=== PATIENT | female | born 1975 | race American Indian/Alaskan Native ===

== ENCOUNTER 2016-12-03 15:21 | Emergency (ER) | payer BC | END 2016-12-03 15:22 | disposition left against medical advice (07) | LOC: ED 15:21 | DX: R50.9 Fever, unspecified (principal); R05 Cough; Z53.21 Procedure and treatment not carried out due to patient leaving prior to being seen by health care provider ==

== ENCOUNTER 2017-01-04 13:17 | Emergency (ER) | payer BC ==
[2017-01-04] MEDS ORDERED: NORCO 7.5/325 PO ONE (14:26)
--- NOTE | 2017-01-04 14:39 | XRay Report ---
Right forearm 2 views: History: Rule out fracture injury and pain. Findings: No articular abnormality. No fracture dislocation or periosteal reaction. Impression: Essentially negative right foot.
--- NOTE | 2017-01-04 15:25 | Emergency Department Report ---
Entered by DENISE HILL, acting as scribe for MONICA HUGGINS PA. ED Lower Extremity HPI - General Chief Complaint: Extremity Injury, Lower Stated Complaint: RT ANKLE INJURY Source: patient Mode of arrival: Wheelchair Limitations: No Limitations - History of Present Illness Initial Comments: 41 year old female with a PMHx of HTN, hypothyroidism, and asthma presents to the ED c/o right posterior ankle pain that began this morning. Patient states that she was walking on gravel and stepped in a hole at work, and subsequently twisted her right ankle. Rates pain a 10/10 in severity. Associated symptoms include right dorsal forefoot pain and swelling, but she denies numbness, tingling, SOB, fever, and chills. Notes patient was brought to the ED by her sister. Reports compliancy with HTN medication and PCP appointments. LMP 2016. Allergic to azithromycin. Complaint: ankle injury (right) -: This morning Injury: Ankle: Right (posterior ankle and dorsal forefoot) Type of Injury: inversion (stepped in a hole at work and twisted right ankle) Place: work Severity: moderate Severity scale (0 -10): 10 Improves With: immobilization Worsens With: weight bearing, movement, palpation Context: walking (stepped in a hole at work) Associated Symptoms: swelling (right ankle), able to partially bear weight, ambulatory. denies: snap/pop sensation, numbness, tingling - Related Data Home Medications Medication Instructions Recorded Confirmed Last Taken Levothyroxine [Synthroid] 200 mcg PO QAM 08/21/14 08/07/15 08/20/14 Previous Rx's Medication Instructions Recorded Last Taken Type HYDROcodone/APAP 7.5-325 [[place] 1 each PO Q6HR PRN #12 tablet 08/07/15 Unknown Rx 7.5/325] Amoxicillin [Trimox CAP] 500 mg PO Q8H #30 capsule 08/12/15 Unknown Rx Fluticasone [Flonase] 2 spray NS QDAY #1 bottle 08/12/15 Unknown Rx Loratadine [Claritin] 10 mg PO DAILY #30 tablet 08/12/15 Unknown Rx Prednisone [predniSONE 10 mg 10 mg PO .TAPER #1 tab.ds.pk 08/12/15 Unknown Rx (6-Day Pack, 21 Tabs)] Promethazine /Codeine 5 ml PO Q6H PRN #120 ml 08/12/15 Unknown Rx [Phenergan/Codeine 6.25-10 mg/5 ml] Tobramycin 0.3% [Tobrex] 1 drop OP Q4HR #1 bottle 08/21/15 Unknown Rx Acetaminophen/Codeine [Tylenol 1 tab PO Q6H PRN #20 tab 01/04/17 Unknown Rx /Codeine # 3 tab] Ibuprofen [Motrin 800 MG tab] 800 mg PO Q8HR PRN #30 tablet 01/04/17 Unknown Rx Allergies Allergy/AdvReac Type Severity Reaction Status Date / Time azithromycin [From Zithromax] Allergy Swelling Verified 08/21/14 05:01 ED Review of Systems Comment: All other systems reviewed and negative Constitutional: denies: chills, fever, other (tingling) Respiratory: denies: orthopnea, shortness of breath, SOB with exertion, SOB at rest, stridor Cardiovascular: denies: chest pain, palpitations, dyspnea on exertion, orthopnea Gastrointestinal: denies: nausea, vomiting Musculoskeletal: other (right ankle pain) Skin: other (right ankle swelling) Neurological: denies: numbness ED Past Medical Hx - Past Medical History Hx Hypertension: Yes Hx Asthma: Yes Additional medical history: HYPOTHYROID - Surgical History Additional Surgical History: CS, THYROIDECTOMY - Social History Smoking Status: Never Smoker Substance Use Type: None - Medications Home Medications: Home Medications Medication Instructions Recorded Confirmed Last Taken Type Levothyroxine [Synthroid] 200 mcg PO QAM 08/21/14 08/07/15 08/20/14 History HYDROcodone/APAP 7.5-325 [[place] 1 each PO Q6HR PRN #12 tablet 08/07/15 Unknown Rx 7.5/325] Amoxicillin [Trimox CAP] 500 mg PO Q8H #30 capsule 08/12/15 Unknown Rx Fluticasone [Flonase] 2 spray NS QDAY #1 bottle 08/12/15 Unknown Rx Loratadine [Claritin] 10 mg PO DAILY #30 tablet 08/12/15 Unknown Rx Prednisone [predniSONE 10 mg 10 mg PO .TAPER #1 tab.ds.pk 08/12/15 Unknown Rx (6-Day Pack, 21 Tabs)] Promethazine /Codeine 5 ml PO Q6H PRN #120 ml 08/12/15 Unknown Rx [Phenergan/Codeine 6.25-10 mg/5 ml] Tobramycin 0.3% [Tobrex] 1 drop OP Q4HR #1 bottle 08/21/15 Unknown Rx Acetaminophen/Codeine [Tylenol 1 tab PO Q6H PRN #20 tab 01/04/17 Unknown Rx /Codeine # 3 tab] Ibuprofen [Motrin 800 MG tab] 800 mg PO Q8HR PRN #30 tablet 01/04/17 Unknown Rx ED Physical Exam - General Limitations: No Limitations General appearance: alert, in no apparent distress - Head Head exam: Present: atraumatic, normocephalic - Eye Eye exam: Present: normal appearance, EOMI Pupils: Present: normal accommodation - ENT ENT exam: Present: normal exam, mucous membranes moist - Neck Neck exam: Present: normal inspection, full ROM - Respiratory Respiratory exam: Present: normal lung sounds bilaterally. Absent: respiratory distress, wheezes, rales, rhonchi, stridor - Cardiovascular Cardiovascular Exam: Present: regular rate, normal rhythm. Absent: systolic murmur, diastolic murmur, rubs, gallop - Extremities Exam Extremities exam: Present: normal inspection, full ROM (limited dorsiflexion and plantar flexion), tenderness (right posterior ankle and dorsal forefoot tenderness), joint swelling (minimal right dorsal forefoot ). Absent: normal capillary refill, pedal edema - Expanded Lower Extremity Exam Right Hip exam: Present: normal inspection, full ROM Upper Leg exam: Present: normal inspection, full ROM Knee exam: Present: normal inspection, full ROM Lower Leg exam: Present: normal inspection, full ROM Ankle exam: Present: normal inspection, tenderness (right posterior ankle tenderness). Absent: full ROM (limited dorsiflexion and plantar flexion due to posterior ankle pain), swelling, abrasion, laceration, ecchymosis, deformity, dislocation, erythema Foot/Toe exam: Present: normal inspection, tenderness (right dorsal forefoot tenderness), swelling (minimal right dorsal forefoot edema). Absent: full ROM ( limited due to dorsal forefoot pain), abrasion, laceration, ecchymosis, deformity, dislocation, erythema Neuro vascular tendon exam: Present: no vascular compromise. Absent: pulse deficit, abnormal cap refill, motor deficit, sensory deficit, tendon deficit, pallor Gait: Positive: unable to bear weight (patient in ED in wheelchair) - Back Exam Back exam: Present: normal inspection, full ROM - Neurological Exam Neurological exam: Present: alert, oriented X3 - Psychiatric Psychiatric exam: Present: normal affect, normal mood - Skin Skin exam: Present: warm, dry, intact, other (minimal right dorsal forefoot swelling). Absent: rash ED Course Vital Signs 01/04/17 13:29 Temperature 98.4 F Pulse Rate 101 H Respiratory 20 Rate Blood Pressure 129/89 O2 Sat by Pulse 100 Oximetry ED Lower Extremity MDM - Medical Decision Making Patient was evaluated in fast track area of ED by this provider. Patient presented with right ankle pain secondary to stepping in a hole at work this morning. Patient is in no acute distress at this time. In the ED, the patient is given pain medication. The X-ray was reviewed by Dr. Daniel Garcia and he found no fracture, dislocation, or periosteal reaction in her right ankle. She will be discharged home with prescription for pain medication. Patient is instructed to follow up with a family resource management specialist or an orthopedic doctor if symptoms persist. She is encouraged to return to the emergency room for any worsening symptoms. ED Disposition Clinical Impression: Right ankle sprain Qualifiers: Encounter type: initial encounter Involved ligament of ankle: unspecified ligament Qualified Code(s): S93.401A - Sprain of unspecified ligament of right ankle, initial encounter Disposition: DISCHARGED TO HOME OR SELFCARE Is pt being admited?: No Does the pt Need Aspirin: No Condition: Stable Instructions: RICE Therapy (ED), Ankle Stirrup Splint (ED), Ankle Sprain (ED), Ankle Exercises (GEN) Additional Instructions: Please take the Motrin and Tylenol for pain control. Where it Bib bandage and splint for ankle as prescribed. Follow up with the provider if does not resolve or improve. Prescriptions: Acetaminophen/Codeine [Tylenol /Codeine # 3 tab] 1 tab PO Q6H PRN #20 tab PRN Reason: Pain Ibuprofen [Motrin 800 MG tab] 800 mg PO Q8HR PRN #30 tablet PRN Reason: Pain Referrals: PRIMARY CAREMD [Primary Care Provider] - 3-5 Days LEANNA AMEZQUITA MD [Staff Physician] - 3-5 Days Forms: Work/School Release Form(ED) This documentation as recorded by the scribe,DENISE HILL,accurately reflects the service I personally performed and the decisions made by me, MONICA HUGGINS, PA.
[2017-01-04 15:26] VITALS: BP 128/68
== END 2017-01-04 15:25 | disposition home or self-care (01) ==
LOC: ED 13:17
DX: S93.401A Sprain of unspecified ligament of right ankle, initial encounter (principal); I10 Essential (primary) hypertension; J45.909 Unspecified asthma, uncomplicated; E03.9 Hypothyroidism, unspecified; X50.9XXA Other and unspecified overexertion or strenuous movements or postures, initial encounter; Y93.89 Activity, other specified; Y92.89 Other specified places as the place of occurrence of the external cause; Y99.8 Other external cause status
CPT/HCPCS: 81025; 99284

== ENCOUNTER 2018-12-07 21:28 | Emergency (ER) | payer BC ==
[2018-12-07] MEDS ORDERED: NORCO 7.5/325 PO ONE (21:41)
[2018-12-07 21:43] VITALS: BP 166/86
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
[2018-12-07] MEDS ORDERED: THERMAZENE 50 GRAM TP ONE ×3 (21:48→22:10)
[2018-12-07] MEDS ORDERED: PERCOCET 5/325 PO ONE (22:04)
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
== END 2018-12-07 22:25 | disposition home or self-care (01) ==
LOC: ED 21:28
DX: T23.102A Burn of first degree of left hand, unspecified site, initial encounter (principal); T23.101A Burn of first degree of right hand, unspecified site, initial encounter; I10 Essential (primary) hypertension; J45.909 Unspecified asthma, uncomplicated; E89.0 Postprocedural hypothyroidism; Z88.1 Allergy status to other antibiotic agents; X11.8XXA Contact with other hot tap-water, initial encounter; Y93.89 Activity, other specified; Y92.89 Other specified places as the place of occurrence of the external cause; Y99.8 Other external cause status
CPT/HCPCS: 99282